=== PATIENT | female | born 1995 | race African-American/Black ===

== ENCOUNTER 2020-09-22 11:20 | Day surgery (SDC) ==
[2020-09-22] MEDS ORDERED: hydrALAZINE 20 MG/ML VIAL SLOW IVP PRN (11:56)
== END 2020-09-22 12:10 | disposition home or self-care (01) ==
LOC: CSHLD/OP 11:20
PROVIDERS: ATTEND Obstetrics & Gynecology
DX: O26.853 Spotting complicating pregnancy, third trimester (principal); O46.93 Antepartum hemorrhage, unspecified, third trimester; O34.219 Maternal care for unspecified type scar from previous cesarean delivery; Z3A.28 28 weeks gestation of pregnancy
CPT/HCPCS: 99283

== ENCOUNTER 2023-01-28 14:00 | Day surgery (SDC) | payer OTHER ==
[2023-01-28] MEDS ORDERED: Acetaminophen 500 MG TAB ONE (14:10)
[2023-01-28] MEDS ORDERED: Acetaminophen 500 MG TAB PO SCH (14:15)
[2023-01-28] MEDS ORDERED: Iron Sucrose Complex 500 MG in Sodium Chloride 0.9% 250 ML 250 ML IVPB SCH (14:15)
== END 2023-01-28 18:25 | disposition home or self-care (01) ==
LOC: CSHSDC/OP 14:00
PROVIDERS: ATTEND Student in an Organized Health Care Education/Training Program
DX: O99.019 Anemia complicating pregnancy, unspecified trimester (principal); D64.9 Anemia, unspecified; Z3A.00 Weeks of gestation of pregnancy not specified
CPT/HCPCS: J1756; J7050